=== PATIENT | male | born 1960 | race Caucasian/White ===

== ENCOUNTER 2024-04-07 15:12 | Emergency (ER) | payer MEDICARE, SELFPAY ==
[2024-04-07 15:18] VITALS: BP 138/77; PULSE 108; RESP 18; TEMP 36.4; O2SAT 96
--- NOTE | 2024-04-07 15:31 | ED.URI ---
HPI - URI/Sore Throat General Chief Complaint: Upper Respiratory Infection Stated Complaint: Poss Sinus Infection Time Seen by Provider: 04/07/24 15:31 Source: patient and RN notes reviewed Mode of arrival: ambulatory Limitations: no limitations History of Present Illness HPI Narrative: 64-year-old male with history of smoking presents with concern for one-week history of sinus congestion, sinus pain and pressure, chest congestion, cough, shortness of breath. He reports he is taking gdrc-yld-sodmeve medications that relief. He reports general malaise and body aches. MD elicited complaint: cough, nasal congestion and sinus pain Related Data Home Medications Medication Instructions Recorded Confirmed baclofen 10 mg tablet See Rx Instructions .Route 04/07/24 04/07/24 .COMPLEX PRN Pain folic acid 1 mg tablet 1 mg PO DAILY 04/07/24 04/07/24 gabapentin 300 mg capsule 300 mg PO BID 04/07/24 04/07/24 hydrocodone 5 mg-acetaminophen 325 See Rx Instructions .Route 04/07/24 04/07/24 mg tablet .COMPLEX PRN Pain metformin 500 mg tablet 1,000 mg PO BID 04/07/24 04/07/24 methotrexate sodium 2.5 mg tablet See Rx Instructions .Route .COMPLEX 04/07/24 04/07/24 Allergies Allergy/AdvReac Type Severity Reaction Status Date / Time No Known Allergies Allergy Verified 04/07/24 15:29 Review of Systems Review of Systems: CONSTITUTIONAL: Reports malaise. Denies chills, sweats, or fever. EYES: Denies visual changes, redness, or discharge. ENT: Reports rhinorrhea, congestion, sinus pain CARDIOVASCULAR: Denies chest pain, palpitations, or edema. RESPIRATORY: Reports cough, chest congestion, dyspnea. GASTROINTESTINAL: Denies abdominal pain, nausea, vomiting, diarrhea SKIN: Denies rash or itching. MUSCULOSKELETAL: Reports myalgia. NEUROLOGIC: Reports headache. All systems reviewed & are unremarkable except as noted in HPI and below PMFSH Comments At time of signature, agree with nursing past medical, surgical, social and family history. There is no relevant family history pertinent to the presenting complaint Exam Narrative: GENERAL: Well-appearing, well-nourished, and in no acute distress. HEAD: Normocephalic EYES: PERRLA, conjunctivae clear ENT: Nares clear, turbinates edematous and erythematous. Mucous membranes moist. TM pearly parker with dull light reflex bilaterally; no tragal tenderness. Oropharynx not erythematous without lesions. Tonsils not enlarged and without exudate, no drooling, no hoarseness, no trismus, uvula midline. NECK: Supple. No lymphadenopathy CHEST: Scattered expiratory wheeze and rhonchi, breath sounds equal. No rales, or stridor. No respiratory distress, speaks in full sentences. HEART: Regular rate and rhythm. No murmur heard. SKIN: Warm, dry, no rash. NEURO: Alert and oriented x3. PSYCH: Normal mood and affect Course Course Emergency Course: Patient is aware of diagnosis, understands and agrees to treatment plan. Anticipatory guidance given. Patient agrees to follow-up as directed and is aware of reasons to seek care at the emergency department. Portions of this record may have been created with voice recognition software Level of Care: Express Care Visit Vital Signs Vital signs: Vital Signs Temperature 97.6 F 04/07/24 15:18 Pulse Rate 108 H 04/07/24 15:18 Respiratory Rate 18 04/07/24 15:18 Blood Pressure 138/77 04/07/24 15:18 Pulse Oximetry 96 04/07/24 15:18 Oxygen Delivery Room Air 04/07/24 15:18 Temperature 97.6 F 04/07/24 15:18 Pulse Rate 108 H 04/07/24 15:18 Respiratory Rate 18 04/07/24 15:18 Blood Pressure 138/77 04/07/24 15:18 Pulse Oximetry 96 04/07/24 15:18 Oxygen Delivery Room Air 04/07/24 15:18 Reviewed. MDM - URI/Sore Throat MDM Narrative Medical decision making narrative: Differential diagnosis considered: Maynard virus, strep pharyngitis, allergic rhinitis, upper respiratory tract infection, sinusitis, rhinosinusitis, nasophary
== END 2024-04-07 15:40 | disposition home or self-care (01) ==
PROVIDERS: Emergency Provider Nurse Practitioner; PCP Family Medicine
DX: J22 Unspecified acute lower respiratory infection (principal); J32.9 Chronic sinusitis, unspecified; Z96.652 Presence of left artificial knee joint; M19.90 Unspecified osteoarthritis, unspecified site; E11.42 Type 2 diabetes mellitus with diabetic polyneuropathy; Z79.84 Long term (current) use of oral hypoglycemic drugs
CPT/HCPCS: 99213; G0463

== ENCOUNTER 2024-04-13 13:48 | Emergency (ER) | payer MEDICARE, SELFPAY ==
[2024-04-13 13:54] VITALS: BP 117/83; PULSE 120; RESP 20; TEMP 36.7; O2SAT 98
--- NOTE | 2024-04-13 15:01 | ED.URI ---
HPI - URI/Sore Throat General Chief Complaint: Upper Respiratory Infection Stated Complaint: sinus/head pressure Time Seen by Provider: 04/13/24 14:20 Source: patient, RN notes reviewed and old records reviewed Mode of arrival: ambulatory Limitations: no limitations History of Present Illness HPI Narrative: 64 year old male [facility] with complaints of head pressure, sinus pressure and sinus congestion with pressure to ears for the past 1.5 weeks. Patient was treated previously with Doxycycline steroids and inhaler and feels his symptoms haven't resolved. He reports that he is going out of town and he needs an other antibiotic to resolve his sinus infection. Patient denies any shortness of pbreath with no tachypnea or any retractions noted SAO2 98% on room air MD elicited complaint: cough, rhinorrhea, nasal congestion, sinus pain and other (head pressure and ears ) Pertinent past history: sinusitis and immunosuppression (methotrexate) Onset (ago): week(s) (1.5) Consistency: constant Severity: moderate Able to tolerate fluids by mouth: Yes Treatments prior to arrival: antibiotics and other (steroids, inhaler and Zicam nasal spray) Related Data Home Medications Medication Instructions Recorded Confirmed baclofen 10 mg tablet See Rx Instructions .Route 04/07/24 04/07/24 .COMPLEX PRN Pain folic acid 1 mg tablet 1 mg PO DAILY 04/07/24 04/07/24 gabapentin 300 mg capsule 300 mg PO BID 04/07/24 04/07/24 hydrocodone 5 mg-acetaminophen 325 See Rx Instructions .Route 04/07/24 04/07/24 mg tablet .COMPLEX PRN Pain metformin 500 mg tablet 1,000 mg PO BID 04/07/24 04/07/24 methotrexate sodium 2.5 mg tablet See Rx Instructions .Route .COMPLEX 04/07/24 04/07/24 Allergies Allergy/AdvReac Type Severity Reaction Status Date / Time No Known Allergies Allergy Verified 04/07/24 15:29 Review of Systems Review of Systems: CONSTITUTIONAL: Denies malaise, chills, sweats, or fever. EYES: Denies visual changes, redness, or discharge. ENT: Reports rhinorrhea, congestion, sinus pain,head pressure bilateral otalgia and no sore throat. CARDIOVASCULAR: Denies chest pain, palpitations, or edema. RESPIRATORY: Reports occaisional cough.? Denies dyspnea. GASTROINTESTINAL: Denies abdominal pain, nausea, vomiting, diarrhea SKIN: Denies rash or itching. MUSCULOSKELETAL: Denies myalgia. NEUROLOGIC:Reports headache. All systems reviewed & are unremarkable except as noted in HPI and below PMFSH Past Medical History Medical History (Updated 04/14/24 @ 12:43 by Osiris Clancy NP) Ankle fracture, left Arthritis Bronchitis Pre-diabetes Surgical History Surgical History (Updated 04/14/24 @ 12:40 by Osiris Clancy NP) H/O cervical spine surgery History of back surgery lumbar History of left knee replacement History of tonsillectomy Social History Social History (Updated 04/14/24 @ 12:37 by Osiris Clancy NP) Smoking packs per day: 1 Smoking cigarettes per day: 20.0 Years smoked: 28 Smoking pack-years: 28.00 Smoking status: Current every day smoker Alcohol intake: current Alcohol use details: social Substance use type: does not use Living arrangements: with family Gender identity (if verbalized by the patient): Male Comments At time of signature, agree with nursing past medical, surgical, social and family history. There is no relevant family history pertinent to the presenting complaint Exam Narrative: GENERAL: Well-appearing, well-nourished, and in no acute distress. HEAD: Normocephalic EYES: PERRLA, conjunctivae clear ENT: Nares clear, turbinates edematous and erythematous, clear to light yellow discharge facial pressure and headache.. Mucous membranes moist. TM pearly parker with dull light reflex bilaterally; no tragal tenderness. Oropharynx erythematous without lesions. Tonsils not present and throat without exudate, no drooling, no hoarseness, no trismus, uvula
== END 2024-04-13 15:20 | disposition home or self-care (01) ==
PROVIDERS: Emergency Provider Registered Nurse; PCP Family Medicine
DX: J32.9 Chronic sinusitis, unspecified (principal); F17.210 Nicotine dependence, cigarettes, uncomplicated; M19.90 Unspecified osteoarthritis, unspecified site; R73.03 Prediabetes; Z96.652 Presence of left artificial knee joint
CPT/HCPCS: 99213; G0463